=== PATIENT | female | born 1995 | race Caucasian/White ===

== ENCOUNTER 2020-01-06 16:52 | Emergency (ER) | payer OTHER, SELFPAY ==
[~2020-01-06] VITALS: Ht 162.6 cm; Wt 65.8 kg
[2020-01-06 17:06] VITALS: BP 113/74
--- NOTE | 2020-01-06 17:12 | NUR ---
WANT TO CHECK COVID TEST . [employer] COVID +. DENIES FEVER, COUGH OR PAIN. MED HX: DENIES
--- NOTE | 2020-01-06 17:53 | NUR ---
COVID SWAB DONE.
--- NOTE | 2020-01-06 18:27 | NUR ---
Patient discharged with v/s stable. Written and verbal after care instructions given and explained. Patient verbalized understanding. Ambulatory with steady gait. All questions addressed prior to discharge. Advised to follow up with PMD.
[2020-01-06 18:28] VITALS: BP 113/74
== END 2020-01-06 18:27 | disposition home or self-care (01) ==
LOC: EEVIPCON 16:52 → MED 16:52
DX: Z03.818 Encounter for observation for suspected exposure to other biological agents ruled out (principal)
CPT/HCPCS: 99283; U0003